=== PATIENT | male | born 1970 | race Caucasian/White ===

== ENCOUNTER 2025-01-27 08:35 | Outpatient (REF) | payer MEDICAID, SELFPAY ==
--- OUTSIDE RECORDS SUMMARY | 2025-01-22 09:00 | XMS_ITS | Encounter Summary ---
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) Amputation of right great toe (CMS/HCC) Santo Carmen MD [address] [place] [address] Phone: tel: fax: Jefferson Bender DPM [address] [place] [phone] Phone: tel: fax: Referral ID Status Reason Start Date Expiration Date Visits Requested Visits Authorized [id number] Authorized Specialty Services Required 01/26/2025 01/26/2026 6 6 * Consultation (Routine) - Authorized Specialty Diagnoses / Procedures Referred By Contac t Referred To Contact Vascular Surgery Diagnoses Amputation of right great toe (CMS/HCC) Peripheral vascular disease (CMS/HCC) Santo Carmen MD [address] [place] [address] Phone: tel: fax: [address] Phone: tel: fax: Referral ID Status Reason Start Date Expiration Date Visits Requested Visits Authorized [id number] Authorized Specialty Services Required 01/26/2025 01/26/2026 6 6 Reason for Visit * Reason Comments Diabetes Encounter Details Date Type Department Care Team (Late st Contact Info) Description 01/22/2025 9:00 AM EDT Office Visit [facility] [address], [place] [phone] Santo Carmen MD [address] [place] [address] 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 (CMS/HCC) (Primary Dx); Polyneuropathy associated with underlying disease (CMS/HCC); Amputation of right great toe (CMS/HCC); Hypercholesterolemia; Peripheral vascular disease (CMS/HCC) Social History Tobacco Use Types Packs/Day Years Used Date Smoking Tobacco: Never Assessed Sex and Gender Information Value Date Recorded Sex Assigned at Male 12/15/2024 3:14 PM EDT Legal Sex Male 12:29 PM EDT Gender Identity Male 12/15/2024 3:14 PM EDT Sexual Orientation Straight 01/22/2025 8: 41 AM EDT documented as of this encounter Last Filed Vital Signs Vital Sign Reading Time Taken Comments Blood Pressure 106/68 01/22/2025 9:16 AM EDT Pulse 97 01/22/2025 9:16 AM EDT Temperature 36.8 C (98.2 F) 01/22/2025 9:16 AM EDT Respiratory Rate 18 01/22/2025 9:16 AM EDT Oxygen Saturation 98% 01/22/2025 9:16 AM EDT Inhaled Oxygen Concentration - - Weight 73.9 kg (163 lb) 01/22/2025 9:16 AM EDT Height - - Body Mass Index - - documented in this encounter Progress Notes * Santo Carmen MD - 01/22/2025 9:00 AM EDT Subjective History was provided by the patient. Mkie Truong is a 54 y.o. male NEW PATIENT who presents to establish care and request medication refills. Moved from [place] 1.5 months ago. Underlying Type 1 DM (diagnosed at age 43), PVD, peripheral neuropathy, and hypercholesterolemia. He is s/p right great toe amputation and left 5th metatar margareth bone removal due to osteomyelitis. Had a prolonged hospitalization for 4 months at that time. Now living with his adult son in this area. He has been out of his medications for 2 weeks. Has hyperglycemia, but BS is not terribly out of control. States he feels more peaceful since he moved to this area. Denies F/C/N/V/D, abdominal pain, SOTO, dizziness, or lightheadedness. Previous medications: Gabapentin 300mg at bedtime Lisinopril 2.5mg daily Atorvastatin 20mg at bedtime Plavix 75mg daily Lantus 30 units bid Lispro 15 units before meals Data (10/06/2024): H/H 11.9/36.9 PLT 308 BUN/Cr 33/0.58 Objective Vitals: 01/22/25 0916 BP: 106/68 BP Location: Right arm Patient Position: Sitting BP Cuff Size: Adult Pulse: 97 Resp: 18 Temp: 98.2 ??F (36.8 ??C) TempSrc: Temporal SpO2: 98% Weight: 163 lb (73.9 kg) Physical Exam Vitals reviewed. Constitutional: General: He is not in acute distress. Appearance: Normal appearance. He is not ill-appearing, toxic-appearing or diaphoretic. HENT: Head: Normocephalic and atraumatic. Right Ear: External ear normal. Left Ear: External ear normal. Nose: Nose normal. Mouth/Throat: Mouth: Mucous membranes are moist. Pharynx: Oropharynx is clear. No oropharyngeal exudate or posterior oropharyngeal erythema. Eyes: Extraocular Movements: Extraocular movements intact. Conjunctiva/sclera: Conjunctivae normal. Pupils: Pupils are equal, round, and reactive to light. Cardiovascular: Rate and Rhythm: Normal rate and regular rhythm. Heart sounds: Normal heart sounds. Pulmonary: Effort: Pulmonary effort is normal. No respiratory distress. Breath sounds: Normal breath sounds. No wheezing or rales. Chest: Chest wall: No tenderness. Abdominal: General: Abdomen is flat. Palpations: Abdomen is soft. Musculoskeletal: General: Normal range of motion. Cervical back: Neck supple. Comments: S/p right great toe amputation with well-healed scar; well-healed scar at left 5th metatarsal area (5th toe is intact); bilateral plantar calluses (3cm x 3cm each) Lymphadenopathy: Cervical: No cervical adenopathy. Skin: General: Skin is warm and dry. Neurological: General: No focal deficit present. Mental Status: He is alert and oriented to person, place, and time. Psychiatric: Mood and Affect: Mood normal. Behavior: Behavior normal. Office Visit on 01/22/2025 Component Date Value Ref Range Status Hemoglobin A1C 01/22/2025 9.7 (A) 4.0 - 5.7 % Final Glucose Blood, POC 01/22/2025 235 (A) 60 - 200 mg/dL Final Mike was seen today for diabetes. Diagnoses and all orders for this visit: 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 ([facility]) (Primary) - POCT A1c - POCT glucose manually resulted - insulin glargine (Lantus SoloStar) 100 UNIT/ML pen; Inject 30 Units under the skin at bedtime. - insulin lispro (HumaLOG KWIKPEN) 100 UNIT/ML injection; Inject 10 Units under the skin with breakfast, with lunch, and with evening meal. - lisinopril (Zestril) 2.5 MG tablet; Take 1 tablet (2.5 mg) by mouth Once per day. - pen needle 32G x 4 mm misc; Use as instructed - Alcohol Swabs (Alcohol Pads) 70 % pads; Use as directed on skin; type 1 DM - Blood Glucose Monitoring Suppl (FreeStyle [place] Lite) w/Device kit; Use to test blood sugar biddx dm - glucose blood (FREESTYLE LITE) test strip; Use tid-qid. Dx type 1 diabetes - FreeStyle lancets; 1 each by Other route if needed in the morning, at noon, in the evening, and at bedtime (to check BS). dx type 1 diabetes - Lipid Panel, Standard; Future - CBC auto differential; Future - Comprehensive Metabolic Panel; Future - Albumin, Random Urine W/Creatinine; Future - Referral to Podiatry; Future Polyneuropathy associated with underlying disease ([facility]) - gabapentin (Neurontin) 300 MG capsule; Take 1 capsule (300 mg) by mouth at bedtime. Amputation of right great toe ([facility]) - Referral to Vascular Surgery; Future - Referral to Podiatry; Future Hypercholesterolemia - atorvastatin (Lipitor) 20 MG tablet; Take 1 tablet (20 mg) by mouth Once per day. - Lipid Panel, Standard; Future Peripheral vascular disease ([facility]) - clopidogrel (Plavix) 75 MG tablet; Take 1 tablet (75 mg) by mouth Once per day. - Comprehensive Metabolic Panel; Future - Referral to Vascular Surgery; Future New patient presents to establish care and request medication refills Underlying Type 1 DM (diagnosed at age 43) Has been out of his medications for 2 weeks POC BS 235 & Hgb A1c 9.7 today Reports decreased stress since moving to [place] Denies any acute concerns Will Rx Glucometer and supplies Will refill insulin at lower doses given current BS despite no meds for 2 weeks Rx Lantus SoloStar 30 units at bedtime (previously at 30 units bid) Rx Humalog Kwikpen 10 units before meals (previously at 15 units before meals) Advised to monitor BS 4x/day + PRN Refilled Gabapenin, Lisinopril, Atorvastatin, and Plavix Check CMP, FLP, CBC, and MA/Cr ratio New PCP appointment scheduled for 02/12/2025 Will submit a referral to [facility] Will also refer to Vascular Surgery and Podiatry Indications for UC/ER use reviewed Advised to contact the clinic if any worsening concerns New PCP appointment scheduled for 03/31/2025 (changed to 02/12/2025) Needs EYE referral Needs Vascular Surgery referral Needs Podiatry referral ([place]) documented in this encounter Plan of Treatment Upcoming Encounters Date Type Department Care Team (Late st Contact Info) Description 02/12/2025 9:45 AM EDT Office Visit [facility] [address] [place] [phone] Lesly Jaeger MD [address] [place] [address] Scheduled Orders Name Type Priority Associated Diagnoses Orde r Schedule Lipid Panel, Standard Lab Routine 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 (CMS/HCC) Hypercholesterolemia Expected: 01/22/2025 (Approximate), Expires: 01/22/2026 CBC auto differential Lab Routine 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 (CMS/HCC) Expected: 01/22/2025 (Approximate), Expires: 01/22/2026 Comprehensive Metabolic Panel Lab Routine 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 (CMS/HCC) Peripheral vascular disease (CMS/HCC) Expected: 01/22/2025 (Approximate), Expires: 01/22/2026 Albumin, Random Urine W/Creatinine Lab Routine 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 ([facility]/HCC) Expected: 01/22/2025 (Approximate), Expires: 01/22/2026 Scheduled Referrals Name Type Priority Associated Diagnoses Orde r Schedule Referral to Vascular Surgery Outpatient Referral Routine Amputation of right great toe ([facility]) Peripheral vascular disease ([facility]/HCC) Expected: 01/24/2025 (Approximate), Expires: 01/24/2026 Referral to Podiatry Outpatient Referral Routine 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 ([facility]/HCC) Amputation of right great toe ([facility]) Expected: 01/24/2025 (Approximate), Expires: 01/24/2026 documented as of this encounter Procedures Procedure Name Priority Date/Time Associated Diagnosis Comments POCT GLYCATED HEMOGLOBIN, TOTAL Routine 01/22/2025 9:18 AM EDT 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 ([facility]/HCC) POCT GLUCOSE Routine 01/22/2025 9:18 AM EDT 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 ([facility]) documented in this encounter Results * (ABNORMAL) POCT glucose manually resulted (01/22/2025 9:18 AM EDT) Glucose Blood, POC 235(A) 60 - 200 mg/dL Blood Capillary blood specimen / Unknown 01/22/2025 9:18 AM EDT us Santo Carmen MD POINT OF CARE TEST ENTER/EDIT OR DERABLES Final Result * (ABNORMAL) POCT A1c (01/22/2025 9:18 AM EDT) Hemoglobin A1C 9.7(A) 4.0 - 5.7 % Blood 01/22/2025 9:18 AM EDT us Santo Carmen MD POINT OF CARE TEST ENTER/EDIT OR DERABLES Final Result documented in this encounter Visit Diagnoses Diagnosis 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
--- OUTSIDE RECORDS SUMMARY | 2025-01-27 09:04 | XMS_ITS | Clinical Summary ---
Author Organization [employer] Address [address] [facility] [address] [place] [address] Care Team Providers Care Lightning Rod Erector Name Role Phone Unavailable Primary Care Provider Unavailabl e Allergies Active Allergy Reactions Criticality Noted Date Comments Aspirin Rash Low 01/22/2025 Medications insulin glargine (Lantus SoloStar) 100 UNIT/ML penIndications:Ty pe 1 diabetes mellitus with other circulatory complication (HCC) Inject 30 Units under the skin at bedtime. 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 30 tablet 2 5 04/22/20 25 Active pen needle 32G x 4 mm miscIndications:T ype 1 diabetes mellitus with other circulatory complication (HCC) Use as instructed 100 each 2 5 Active atorvastatin (Lipitor) 20 MG tabletIndications :Hypercholesterol emia Take 1 tablet (20 mg) by mouth Once per day. 30 tablet 2 5 04/22/20 25 Active clopidogrel (Plavix) 75 MG tabletIndications :Peripheral vascular disease (CMS/HCC) Take 1 tablet (75 mg) by mouth Once per day. 30 tablet 2 5 04/22/20 25 Active gabapentin (Neurontin) 300 MG capsuleIndication s:Polyneuropathy associated with underlying disease (CMS/HCC) Take 1 capsule (300 mg) by mouth at bedtime. 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 dx type 1 diabetes 100 each 01/23/20 Active Encounters Date Type Department Care Team Description 01/24/2025 Telephone [facility] [address] [place] [phone] Santo Carmen MD EYE EXAM REQUEST (New patient with Type 1 DM being referred for routine eye exam.) 01/22/2025 9:00 AM EDT Office Visit [facility] [address] [place] [phone] Santo Carmen MD 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 (CMS/HCC) (Primary Dx); Polyneuropathy associated with underlying disease (CMS/HCC); Amputation of right great toe (CMS/HCC); Hypercholesterolemia; Peripheral vascular disease (CMS/HCC) 01/22/2025 Telephone [facility] [address] [place] [phone] Santo Carmen MD 01/22/2025 Travel 01/21/2025 Telephone [facility] [address] [place] [phone] Serg Lares MD Call Back Request 01/05/[address] [phone] Serg Lares MD CHW - New Patient Assistance 12/15/2024 Telephone [facility] [address] [place] [address] Delmi Hester MD from Last 3 Months Social History Tobacco Use Types Packs/Day Years Used Date Smoking Tobacco: Never Assessed Sex and Gender Information Value Date Recorded Sex Assigned at Male 12/15/2024 3:14 PM EDT Legal Sex Male 12:29 PM EDT Gender Identity Male 12/15/2024 3:14 PM EDT Sexual Orientation Straight 01/22/2025 8: 41 AM EDT Last Filed Vital Signs Vital Sign Reading [...] - - Body Mass Index - - Plan of Treatment Upcoming Encounters Date Type Department Care Team (Late st Contact Info) Description 02/12/2025 9:45 AM EDT Office Visit [facility] [address] [place] [address] Lesly Jaeger MD [address] [place] [address] Health Maintenance Due Date Last Done Comments CT Colonography 1972 Colonoscopy 1972 Colorectal Cancer Screening 1972 Depression Screening 1972 FIT DNA/Cologuard 1972 FIT 1972 FOBT 1972 HIV Screening 1972 Lipid Panel 1972 SDOH Screening 1972 Sigmoidoscopy 1972 Disability Screening 1972 Diabetes: Foot Exam 1982 Eye Exam 1982 Alcohol/Substance Use Screening 1984 Tobacco Screening 1984 Family Planning (PISQ) 1987 Hepatitis C Screening 1990 DTaP/Tdap/Td Vaccines (1 - Tdap) 1991 Diabetes: Urine Protein Screening 1991 Hepatitis B Vaccines (1 of 3 - 19+ 3-dose series) 1991 Pneumococcal Vaccine: 50+ Ye ars (1 of 2 - PCV) 1991 Zoster Vaccines (1 of 2) 2022 COVID-19 Vaccine (1 - 2023-2 5 season) 2024 Influenza Vaccine (#1) 2024 Diabetes: Hemoglobin A1C 04/23/2025 01/22/2025 RSV Patients and Pa tients Aged 60 years or older (1 - 1-dose 75+ series) 2047 HIB Vaccines Aged Out No longer eligi ble based on patient's age to complete this topic HPV Vaccines Aged Out No longer eligi ble based on patient's age to complete this topic Hepatitis A Vaccines Aged Out No long er eligible based on patient's age to complete this topic IPV Vaccines Aged Out No longer eligi ble based on patient's age to complete this topic Meningococcal B Vaccine Aged Out No l onger eligible based on patient's age to complete this topic Meningococcal Vaccine Aged Out No ulises carlos manuel eligible based on patient's age to complete this topic RSV under 20 months Aged Out No longe r eligible based on patient's age to complete this topic Rotavirus Vaccines Aged Out No longer eligible based on patient's age to complete this topic Procedures Procedure Name Priority Date/Time Associated Diagnosis Comments POCT GLUCOSE Routine 01/22/2025 9:18 AM EDT 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 (CMS/HCC) POCT GLYCATED HEMOGLOBIN, TOTAL Routine 01/22/2025 9:18 AM EDT 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 (CMS/HCC) from Last 3 Months Results * (ABNORMAL) POCT A1c (01/22/2025 9:18 AM EDT) Hemoglobin A1C 9.7(A) 4.0 - 5.7 % Blood 01/22/2025 9:18 AM EDT Snato Carmen MD POINT OF CARE TEST ENTER/EDIT OR DERABLES Final Result * (ABNORMAL) POCT glucose manually resulted (01/22/2025 9:18 AM EDT) Glucose Blood, POC 235(A) 60 - 200 mg/dL Blood Capillary blood specimen / Unknown 01/22/2025 9:18 AM EDT Santo Carmen MD POINT OF CARE TEST ENTER/EDIT OR DERABLES Final Result from Last 3 Months [address] [place] [phone] [facility] C[facility]
--- OUTSIDE RECORDS SUMMARY | 2025-01-27 09:04 | XMS_ITS | Encounter Summary ---
Author Organization [employer] [facility] Address [address] [place] [address] [place] [address] Care Team Providers Care Document Manager Name Role Phone Unavailable Primary Care Provider Unavailabl e Encounter Details Date Type Department Care Team (Latest Contact Info) Description 01/22/2025 Travel Social History Tobacco Use Types Packs/Day Years Used Date Smoking Tobacco: Never Assessed Sex and Gender Information Value Date Recorded Sex Assigned at Male 12/15/2024 3:14 PM EDT Legal Sex Male 12:29 PM EDT Gender Identity Male 12/15/2024 3:14 PM EDT Sexual Orientation Straight 01/22/2025 8: 41 AM EDT documented as of this encounter Plan of Treatment Upcoming Encounters Date Type Department Care Team (Late st Contact Info) Description 02/12/2025 9:45 AM EDT Office Visit [facility] [address] [place] [address] Lesly Jaeger MD [address] [place] [address] documented as of this encounter Visit Diagnoses Not on filedocumented in this encounter
--- OUTSIDE RECORDS SUMMARY | 2025-01-27 09:04 | XMS_ITS | Encounter Summary ---
Author Organization [employer] [facility] Address [address] [facility] [address] [place] [address] Care Team Providers Care Die Attaching Machine Tender Name Role Phone Unavailable Primary Care Provider Unavailabl e Reason for Visit * Reason Onset Date Comments EYE EXAM REQUEST 01/24/2025 New patient wit h Type 1 DM being referred for routine eye exam. Encounter Details Date Type Department Care Team (Late st Contact Info) Description 01/24/2025 Telephone [facility] [address] [place] [address] [phone] Santo Carmen MD [address] [place] [address] [phone] EYE EXAM REQUEST (New patient with Type 1 DM being referred for routine eye exam.) Social History Tobacco Use Types Packs/Day Years Used Date Smoking Tobacco: Never Assessed Sex and Gender Information Value Date Recorded Sex Assigned at Male 12/15/2024 3:14 PM EDT Legal Sex Male 12:29 PM EDT Gender Identity Male 12/15/2024 3:14 PM EDT Sexual Orientation Straight 01/22/2025 8: 41 AM EDT documented as of this encounter Miscellaneous Notes * Telephone Encounter - Santo Carmen MD - 01/24/2025 9:13 AM EDT New patient with Type 1 DM being referred for routine eye exam. documented in this encounter Plan of Treatment Upcoming Encounters Date Type Department Care Team (Late st Contact Info) Description 02/12/2025 9:45 AM EDT Office Visit [facility] [address] [place] [phone] Lesly Jaeger MD [address] [place] [phone] documented as of this encounter Visit Diagnoses Not on filedocumented in this encounter
--- OUTSIDE RECORDS SUMMARY | 2025-01-27 09:04 | XMS_ITS | Encounter Summary ---
Author Organization [employer] Address [address] [facility] [address] [place] [address] Care Team Providers Care Office Rental Clerk Name Role Phone Unavailable Primary Care Provider Unavailabl e Encounter Details Date Type Department Care Team (Late st Contact Info) Description 01/22/2025 Telephone [facility] [address] [place] [address] [phone] Santo Carmen MD [address] [place], [place] [phone] Social History Tobacco Use Types Packs/Day Years Used Date Smoking Tobacco: Never Assessed Sex and Gender Information Value Date Recorded Sex Assigned at Male 12/15/2024 3:14 PM EDT Legal Sex Male 12:29 PM EDT Gender Identity Male 12/15/2024 3:14 PM EDT Sexual Orientation Straight 01/22/2025 8: 41 AM EDT documented as of this encounter Miscellaneous Notes * Telephone Encounter - Jordyn Martin MA - 01/22/2025 10:48 AM EDT Spoke to patient and found a sooner New Pt appointment with Dr. Martinez on Feb 12 @ 9:45 am. Patient agreed. Canceled new patient appointment with Dr. Dumont on 03/31/2025. documented in this encounter Plan of Treatment Upcoming Encounters Date Type Department Care Team (Late st Contact Info) Description 02/12/2025 9:45 AM EDT Office Visit [facility] [address] [place], [place] [phone] Lesly Jaeger MD [address] [place], [place] [phone] documented as of this encounter Visit Diagnoses Not on filedocumented in this encounter
[2025-01-27 12:07] LABS: MANUAL DIFF FLAG NO
[2025-01-27 12:14] LABS: Hematocrit 38.2 % (42.0-52.0); Hemoglobin 12.2 g/dl (14.0-18.0); Imm Gran Abs Auto 0.04 X10*3/uL (0.00-0.03); Imm Gran Pct Auto 0.3 % (0.0-0.4); Lymphocytes Absolute Auto 2.1 X10*3/uL (1.2-4.9); Mean Corpuscular HGB Conc 31.9 g/dl (31.0-36.0); Mean Corpuscular Hemoglobin 27.3 pg (27.0-33.0); Mean Corpuscular Volume 85.5 fL (80.0-98.0); NRBC Abs Auto 0.000 X10*3/uL (0.0-0.012); NRBC Pct Auto 0.0 /100WBC (0.0-0.2); Platelet Count 331 X10*3/uL (160-400); Red Blood Count 4.47 X10*6/uL (4.60-5.80); White Blood Count 11.7 X10*3/uL (4.8-10.8)
[2025-01-27 12:19] LABS: Microalbum/Creatinine Ratio Ur 8.1 ug/mg cr (<30)
[2025-01-27 12:33] LABS: Alanine Aminotransferase 12 U/L (0-40); Albumin Level 4.6 g/dL (3.5-5.0); Alkaline Phosphatase 94 U/L (39-117); Anion Gap 13 (12-20); Aspartate Amino Transferase 15 U/L (5-37); Blood Urea Nitrogen 12 mg/dL (9-16); Calcium 9.7 mg/dL (8.4-10.2); Carbon Dioxide 28 mmol/L (22-29); Chloride 105 mmol/L (96-108); Cholesterol 125 mg/dL (<200); Estimated Glomerular Filt Rate > 60; HDL Cholesterol 30 mg/dL (>40); Potassium 4.0 mmol/L (3.3-5.1); Sodium 142 mmol/L (135-145); Total Protein 7.9 g/dL (6.5-8.0); Triglycerides 111 mg/dL (<150)
== END 2025-01-27 08:36 | disposition home or self-care (01) ==
LOC: HO.HHCL 08:35
PROVIDERS: Visit Provider Family Medicine
DX: E10.59 Type 1 diabetes mellitus with other circulatory complications (principal); I73.9 Peripheral vascular disease, unspecified; E78.00 Pure hypercholesterolemia, unspecified
CPT/HCPCS: 36415; 80053; 80061; 82043; 82570; 85025

== ENCOUNTER 2025-03-04 12:51 | Outpatient (REF) | payer MEDICAID, SELFPAY ==
--- NOTE | ~2025-03-04 | US_ITS ---
EXAMINATION: MM DIAGNOSTIC DIGITAL BREAST TOMOSYNTHESIS, BILATERAL Right limited ultrasound. CLINICAL INFORMATION: Right breast palpable lump upper slightly outer breast anterior depth slightly retroareolar region. COMPARISON: Mammography: Comparison is made with relevant prior exams. TECHNIQUE: Digital breast mammography with tomosynthesis is performed in both the craniocaudal and mediolateral oblique views along with computer-aided detection (CAD). FINDINGS: Right: There is moderate right retroareolar gynecomastia which correlates with the patient's palpable BB marker. No suspicious calcifications or other abnormal findings. Targeted color Doppler ultrasound scanning in the right retroareolar region demonstrates moderate retroareolar flame-shaped gynecomastia. Left: Suspicious masses calcifications or other abnormal findings. Results are provided to the patient at time of visit by the technologist. US/US Breast RT Limited Mamm Only IMPRESSION: Left: Negative. Right: Moderate retroareolar flame-shaped right gynecomastia correlating with the patient's palpable lump. Benign. Recommend clinical evaluation and follow-up. ASSESSMENT: BI-RADS Category 2: Benign RECOMMENDATION: Recommend clinical evaluation and follow-up. Electronically signed by: Rose Marie Bowen DO 03/04/2025 02:21 PM EST
--- OUTSIDE RECORDS SUMMARY | 2025-03-04 15:36 | XMS_ITS | Clinical Summary ---
Demographics Address [address] [place] [address] [address] [place] [address] Home Phone Work Phone Mobile Phone Preferred Language es Marital Status Unknown Presybeterian Affiliation Unknown Race Other Race Ethnic Group or Author Organization [address] [facility] Address [address] [place] [address] Phone Care Team Providers Care Patient Registration Representative Name Role Phone Santo Carmen MD Primary Care Provider [phone] Social History Tobacco Use Types Packs/Day Years Used Date Smoking Tobacco: Never Assessed Sex and Gender Information Value Date Recorded Sex Assigned at Not on file Legal Sex Male 9:19 AM EDT Gender Identity Not on file Sexual Orientation Not on file Plan of Treatment Upcoming Encounters Date Type Department Care Team ([facility] Contact Info) Description 03/16/2025 10:15 AM EST Consult Orthopedic Surgery - [place] [id number] [phone] David Mckay, DPMira [address] [phone] Health Maintenance Due Date Last Done Comments Colorectal Cancer Screening: Colonoscopy 1972 Diabetes: Annual GFR (Glomer ular Filtration Rate) 1972 Diabetes: Annual Foot Exam 1982 Diabetes: Annual Retina Eye Exam 1982 DTaP,Tdap,and Td Vaccines (1 - Tdap) 1991 Hepatitis B Vaccines (1 of 3 - 19+ 3-dose series) 1991 Pneumococcal Vaccine: 50+ Ye ars (1 of 2 - PCV) 1991 Zoster Vaccines (1 of 2) 2022 Depression Screening 04/30/2024 COVID-19 Vaccine (1 - 2023-2 5 season) 2024 Influenza Vaccine (#1) 2024 Cholesterol Screening (Lipid Panel) 01/28/2025 Diabetes: Annual Urine Albumin-Creatinine Ratio (uACR) 01/28/2025 Diabetes: Blood Sugar Contro l Test (HGBA1C) 01/28/2025 HIV Screening 01/28/2025 Hepatitis C Screening 01/28/2025 Social Influencers of Health Screening 01/28/2025 RSV Immunization Adult Patie nts (1 - 1-dose 75+ series) 2047 HIB [...] on patient's age to complete this topic MMR Vaccines Aged Out No longer eligi ble based on patient's age to complete this topic Meningococcal ACWY Vaccine Aged Out N o longer eligible based on patient's age to complete this topic Meningococcal B Vaccine Aged Out No l onger eligible based on patient's age to complete this topic RSV Immunization Patients Un aysha 20 months Aged Out No longer eligible b ased on patient's age to complete this topic Varicella Vaccines Aged Out No longer eligible based on patient's age to complete this topic Insurance MEDICAID - [place] Care Teams Patient Registration Representative Relationship Specialty Start Date End Date Santo Carmen MD [address] [place] [address] PCP - General Family Medicine 01/28/25
--- OUTSIDE RECORDS SUMMARY | 2025-03-04 15:36 | XMS_ITS | Encounter Summary ---
Author Organization [employer] Address [address] [place] [address] [address] [place] [address] Care Team Providers Care Clinical Laboratory Assistant Name Role Phone Lesly Jaeger MD Primary Care Pro vider Encounter Details Date Type Department Care Team (Late Contact Info) Description 01/28/2025 Results Follow-Up [facility] [address] [place] [phone] Santo Carmen MD [address] [place] [phone] POCT A1c, POCT glucose manually resulted, Lipid Panel, Standard, Additional followed-up results: 3 Social History Tobacco Use Types Packs/Day Years [...] Encounters Date Type Department Care Team (Late Contact Info) Description 2025 2:00 PM EST Clinical Support [facility] [address] [place] [phone] 04/09/2025 1:15 PM EST Office Visit [facility] [address] [place] [address] [phone] Lesly Jaeger MD [address] [place] [phone] 06/09/2025 1:30 PM EST Office Visit [facility] [address] [place] [phone] Robert Renée, OD [address] [place] [address] documented as of this encounter Visit Diagnoses Not on filedocumented in this encounter Care Teams Clinical Laboratory Assistant Relationship Specialty Start Date End Date Lesly Jaeger MD [address] [place] [phone] PCP - General Internal Medicine 02/12/25 documented as of this encounter
--- OUTSIDE RECORDS SUMMARY | 2025-03-04 15:36 | XMS_ITS | Clinical Summary ---
Author Organization [employer] Address [address] [place] [address] [address] [place] [address] Care Team Providers Care Machine Clothing Man Name Role Phone Lesly Jaeger MD Primary Care Pro vider Allergies Active Allergy Reactions Criticality Noted Date Comments Aspirin Rash Low 01/22/2025 Medications * This document contains information received from the source organization and may not represent a complete record from that organization. 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 30 tablet 2 01/23/20 25 025 Active clopidogrel (Plavix) 75 MG tabletIndicatio ns:Peripheral vascular disease (CMS/HCC) Take 1 tablet (75 mg) by mouth Once per day. 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 dx type 1 diabetes 100 each 01/23/20 Active Melatonin 3 MG capsule Take 3 mg by mouth if needed at bedtime (insomnia). 30 capsule 2 02/13/20 Active gabapentin (Neurontin) 400 MG capsule Take 1 capsule (400 mg) by mouth at bedtime. 90 capsule 02/13/20 Active Continuous Glucose [employer] (FreeStyle Desi 3 [place]) device 1 Device 4 times daily. 1 each 02/13/20 Active Continuous Glucose Sensor (FreeStyle Desi 3 Plus Sensor) misc 1 each every 15 days. Apply 1 every 15 days as directed for CGM 2 each 02/13/20 Active glucose blood (FreeStyle Precision Diego Test) test strip 4 times a day 100 each 02/13/20 Active glucose 4 g chewable tablet Chew 4 tablets (16 g) if needed for low blood sugar. 50 tablet 12 02/13/20 Active FT Earwax Removal 6.5 % otic solution PLACE 5 TO 10 DROPS INTO THE AFFECTED EAR(S) TWICE DAILY FOR 4 DAYS 30 mL 03/04/20 Active gabapentin (Neurontin) 300 MG capsuleIndicati ons:Polyneuropa thy associated with underlying disease (CMS/HCC) Take 1 capsule (300 mg) by mouth at bedtime. 30 capsule 2 01/23/20 25 025 Discontinued(O ther) carbamide peroxide (Debrox) 6.5 % otic solution Administer 5-10 drops into affected ear(s) 2 times daily for 4 days. 30 mL 02/13/20 25 025 Discontinued Active Problems Problem Noted Date Diagnosed Date Type 1 diabetes mellitus wit h diabetic peripheral angiopathy without gangrene 02/12/2025 Health care maintenance 02/12/2025 Peripheral vascular disease 02/12/2025 Diabetic neuropathy 02/12/2025 HLD (hyperlipidemia) 02/12/2025 Anxiety 02/12/2025 Primary insomnia 02/12/2025 History of allergy to aspirin 02/12/2025 Breast mass, right 02/12/2025 Anemia 02/12/2025 Excess ear wax 02/12/2025 Adjustment disorder with mixed anxiety and depre ssed mood 02/12/2025 Encounters * This document contains information received from the source organization and may not represent a complete record from that organization. Date Type Department Care Team Description 03/03/2025 Refill [facility] [address] [place] [phone] Lesly Jaeger MD 02/26/2025 Telephone [facility] [address] [place] [phone] Lesly Jaeger MD Appointment 02/13/2025 2:00 PM EDT Clinical Support [address] [phone] Ronda Arango, RN Type 1 diabetes mellitus with diabetic peripheral angiopathy without gangrene (HCC) 02/13/2025 Travel 02/12/2025 9:45 AM EDT Office Visit [facility] [address] [place] [phone] Lesly Jaeger MD Diabetic retinopathy screening (Primary Dx); 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); Annual physical exam; Colon cancer screening; Subareolar mass of right breast; Encounter for immunization; Type 1 diabetes mellitus with diabetic peripheral angiopathy without gangrene (HCC); Health care maintenance; Peripheral vascular disease ([facility]/HCC); Diabetic polyneuropathy associated with type 1 diabetes mellitus (HCC); Hyperlipidemia, unspecified hyperlipidemia type; Anxiety; Primary insomnia; History of allergy to aspirin; Anemia, unspecified type; Impacted cerumen of left ear 02/12/[address] [phone] Lesly Jaeger MD 02/12/2025 Orders Only [address] [address] Lesly Jaeger MD Subareolar mass of right breast (Primary Dx) 02/12/2025 [facility] [address] [place] [phone] Lesly Jaeger MD MAMMO/US BREAST ORDER 02/12/[address] [phone] Pily Guerin, RN Appointment Request 02/12/2025 Travel 02/11/[address] [address] Lesly Jaeger MD chart prep 02/05/2025 Patient Outreach [address] [phone] Lesly Jaeger MD Care Coordination (W outreach for SDOH housing search-referral completed ) 02/05/2025 Patient Outreach [address] [phone] Lesly Jaeger MD Pre-visit Planning (SDOH Screening positive and Tobacco screening negative) 01/30/2025 Population Health Risk Score [facility] Department [address] [place] [phone] Provider, Population Health Generic 01/28/2025 Results Follow-Up [facility] [address] [place] [address] [phone] Santo Carmen MD POCT A1c, POCT glucose manually resulted, Lipid Panel, Standard, Additional followed-up results: 3 01/24/2025 Telephone [facility] [address] [place] [address] [phone] Santo Carmen MD EYE EXAM REQUEST (New patient with Type 1 DM being referred for routine eye exam.) 01/22/2025 9:00 AM EDT Office Visit [facility] [address] [place] [phone] Santo Carmen MD 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 (CMS/HCC) (Primary Dx); Polyneuropathy associated with underlying disease (CMS/HCC); Amputation of right great toe (CMS/HCC); Hypercholesterolemia; Peripheral vascular disease (CMS/HCC) 01/22/2025 Telephone [facility] [address] [place] [phone] Santo Caremn MD 01/22/2025 Travel 01/21/2025 Telephone [facility] [address] [place] [phone] Serg Lares MD Call Back Request 01/05/[address] [phone] Serg Lares MD CH[facility] - New Patient Assistance 12/15/2024 Telephone [facility] INS ENROLLMENT [address] [place] [phone] Delmi Hester MD from Last 3 Months Immunizations Immunization Administration Dates Next Due Influenza, seasonal, injectable, preservative fr ee 02/12/2025 Pfizer Covid-19 Vaccine 12+ 02/12/2025 Pneumococcal Conjugate PCV 20 02/12/2025 Family History Medical History Relation Name Comments Diabetes Brother DM1 Son Relation Name Status Comments Brother Son Social History Tobacco Use Types Packs/Day Years Used Date Smoking Tobacco: Former Cigarettes Passive Smoke Exposure: Never Smokeless Tobacco: Never Comments:Started smoking at his 27 y of age until 42 y of age ,smoked for 15 y aprox 3 cig a day stopped 12 y ago, PQT a year 2.25 -no need lung ca screening Alcohol Use Standard Drinks/Week Comments Not Currently 0 (1 standard drink = 0.6 oz pur e alcohol) Depression Answer Date Recorded Patient Health Questionnaire-9 Score 13 02/12/2025 Patient Health Questionnaire-9 Score 13 02/12/2025 Last PHQ-9: Questionnaire Data Not on file 1 Housing Stability Answer Date Recorded What is your housing situation today? I do not have housing (Staying with others, in a hotel, in a mcc, living outside on the street, on a beach, in a car, or in a park 02/05/[address] you li ve. Do you have problems with any of the following? None of the above 02/05/2025 Food Insecurity Answer Date Recorded Within the past 12 months, y ou worried that your food would run out before you got money to buy more: Sometimes True 2024 Within the past 12 months,th e food you bought just didn't last and you didn't have enough money to get more: Sometimes True 02/05/2025 Transportation Answer Date Recorded In the past 12 months, has l ack of transportation kept you from medical appts, meetings, work or from getting things needed for daily living? I am not sure 02/12/2025 Utilities Answer Date Recorded In the past 12 months, has t he electric, gas, oil or water company threatened to shut off services in your home? No 02/05/2025 Depression Answer Date Recorded Patient Health Questionnaire-2 Score 4 02/12/2025 Internet Access Answer Date Recorded Internet Access Q1 Yes 02/05/2025 Internet Access Q2 Not on file 02/05/2025 Sex and Gender Information Value Date Recorded Sex Assigned at Male 12/15/2024 3:14 PM EDT Legal Sex Male 12:29 PM EDT Gender Identity Male 12/15/2024 3:14 PM EDT Sexual Orientation Straight 01/22/2025 8: 41 AM EDT Last Filed Vital Signs Vital Sign Reading Time Taken Comments Blood Pressure 108/62 02/12/2025 9:59 AM EDT Pulse 56 02/12/2025 9:59 AM EDT Temperature 36.2 C (97.2 F) 02/12/2025 9:59 AM EDT Respiratory Rate 20 02/12/2025 9:59 AM EDT Oxygen Saturation 98% 01/22/2025 9:16 AM EDT Inhaled Oxygen Concentration - - Weight 74.1 kg (163 lb 6.4 oz) 02/12/2025 9:59 A M EDT Height 177 cm (5' 9.69 ) 02/12/2025 9:59 AM EDT Body Mass Index 23.66 02/12/2025 9:59 AM EDT Plan of Treatment Upcoming Encounters Date Type Department Care Team (Late st Contact Info) Description 2025 2:00 PM EST Clinical Support [facility] [address] [place] [phone] 04/09/2025 1:15 PM EST Office Visit [facility] [address] [place] [phone] Lesly Jaeger MD [address] [place] [address] 06/09/2025 1:30 PM EST Office Visit [facility] [address] [place] [address] Renée Jones, OD [address] [place] [address] Health Maintenance Due Date Last Done Comments Anal Pap 1972 CT Colonography 1972 Colonoscopy 1972 Colorectal Cancer Screening 1972 FIT DNA/Cologuard 1972 FIT 1972 FOBT 1972 HIV Screening 1972 Sigmoidoscopy 1972 Diabetes: Foot Exam 1982 Eye Exam 1982 Family Planning (PISQ) 1987 Hepatitis C Screening 1990 DTaP/Tdap/Td Vaccines (1 - Tdap) 1991 Hepatitis A Vaccines (1 of 2 - Risk 2-dose series) 1991 Hepatitis B Vaccines (1 of 3 - 19+ 3-dose series) 1991 Zoster Vaccines (1 of 2) 2022 Diabetes: Hemoglobin A1C 04/23/2025 01/22/2025 Depression Monitoring 08/13/2025 02/12/2025 , 02/12/2025 Diabetes: Urine Protein Screening 01/27/2026 01/27/2025 Lipid Panel 01/27/2026 01/27/2025 Alcohol/Substance Use Screening 02/12/2026 02/12/2025 Disability Screening 02/12/2026 02/12/2025 SDOH Screening 02/12/2026 02/12/2025 Tobacco Screening 02/12/2026 02/12/2025 RSV Patients and Patients Aged 60 years or older (1 - 1-dose 75+ series) 2047 COVID-19 Vaccine Completed 02/12/2025 Influenza Vaccine Completed 02/12/2025 Pneumococcal Vaccine: 50+ Years Completed 02/12/2025 HIB Vaccines Aged Out No longer eligi [...] Procedure Name Priority Date/Time Associated Diagnosis Comments BI US BREAST LIMITED RIGHT STAT 03/04/2025 1:35 PM EST Subareolar mass of right breast BI MAMMOGRAM DIAGNOSTIC TOMOSYNTHESIS BILATERAL STAT 03/04/2025 1:00 PM EST Subareolar mass of right breast POCT GLUCOSE Routine 02/12/2025 10:35 AM EDT Diabetic retinopathy screening ALBUMIN, RANDOM URINE W/CREATININE Routine 01/27/2025 8:50 AM EDT 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 (CMS/HCC) COMPREHENSIVE METABOLIC PANEL Routine 01/27/2025 8:50 AM EDT 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 (CMS/HCC) Peripheral vascular disease (CMS/HCC) CBC WITH AUTO DIFFERENTIAL Routine 01/27/2025 8:50 AM EDT 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 (CMS/HCC) LIPID PANEL, STANDARD Routine 01/27/2025 8:50 AM EDT 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 (CMS/HCC) Hypercholesterolemia POCT GLUCOSE Routine 01/22/2025 9:18 AM EDT 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 (CMS/HCC) POCT GLYCATED HEMOGLOBIN, TOTAL Routine 01/22/2025 9:18 AM EDT 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 (CMS/HCC) from Last 3 Months Results * BI US Breast Limited Right (03/04/2025 1:35 PM EST) Anatomical Region Laterality Modality Breast Right Ultrasound 03/04/2025 1:35 PM EST Narrative 03/04/2025 2:24 PM EST [facility] [address] [place], [place] [address] Ultrasound Report Signed Patient: Mike Chavez MR#: [id number] : 1970 Acct:[id number] Age/Sex: 54 / M ADM Date: 03/04/25 Loc: HO.MAMMO Attending Dr: Lesly Milner MD Ordering Physician: Lesly Jaeger MD Date of Service: 03/04/25 Procedure(s): US Breast RT Limited Mamm Only Accession Number(s): [id number] cc: Lesly Jaeger MD Reason for Exam: 4 months in right breast behing nipple EXAMINATION: MM DIAGNOSTIC DIGITAL BREAST TOMOSYNTHESIS, BILATERAL Right limited ultrasound. CLINICAL INFORMATION: Right breast palpable lump upper slightly outer breast anterior depth slightly retroareolar region. COMPARISON: Mammography: Comparison is made with relevant prior exams. TECHNIQUE: Digital breast mammography with tomosynthesis is performed in both the craniocaudal and mediolateral oblique views along with computer-aided detection (CAD). FINDINGS: Right: There is moderate right retroareolar gynecomastia which correlates with the patient's palpable BB marker. No suspicious calcifications or other abnormal findings. Targeted color Doppler ultrasound scanning in the right retroareolar region demonstrates moderate retroareolar flame-shaped gynecomastia. Left: Suspicious masses calcifications or other abnormal findings. Results are provided to the patient at time of visit by the technologist. US/US Breast RT Limited Mamm Only IMPRESSION: Left: Negative. Right: Moderate retroareolar flame-shaped right gynecomastia correlating with the patient's palpable lump. Benign. Recommend clinical evaluation and follow-up. ASSESSMENT: BI-RADS Category 2: Benign RECOMMENDATION: Recommend clinical evaluation and follow-up. Electronically signed by: Rose Marie Bowen DO 03/04/2025 02:21 PM [facility] Dictated By: Rose Marie Bowen DO Signed By: <Electronically signed by Rose Marie Bowen DO in OV> 03/04/25 1421 DD/ 1335 TD/TT: 03/04/25 1348 Liver Trimmer: Procedure Note Donotuseinterpreter, Image - 03/04/2025 [facility] [address] [place], [place] [address] Ultrasound Report Signed Patient: Mike ChavezMR#: [id number] : 1970Acct:[id number] Age/Sex: 54 / MADM Date: 03/04/25 Loc: HO.MAMMO Attending Dr: Lesly Milner MD Ordering Physician: Lesly Jaeger MD Date of Service: 03/04/25 Procedure(s): US Breast RT Limited Mamm Only Accession Number(s): [id number] cc: Lesly Jaeger MD Reason for Exam: 4 months in right breast behing nipple EXAMINATION: MM DIAGNOSTIC DIGITAL BREAST TOMOSYNTHESIS, BILATERAL Right limited ultrasound. CLINICAL INFORMATION: Right breast palpable lump upper slightly outer breast anterior depth slightly retroareolar region. COMPARISON: Mammography: Comparison is made with relevant prior exams. TECHNIQUE: Digital breast mammography with tomosynthesis is performed in both the craniocaudal and mediolateral oblique views along with computer-aided detection (CAD). FINDINGS: Right: There is moderate right retroareolar gynecomastia which correlates with the patient's palpable BB marker. No suspicious calcifications or other abnormal findings. Targeted color Doppler ultrasound scanning in the right retroareolar region demonstrates moderate retroareolar flame-shaped gynecomastia. Left: Suspicious masses calcifications or other abnormal findings. Results are provided to the patient at time of visit by the technologist. US/US Breast RT Limited Mamm Only IMPRESSION: Left: Negative. Right: Moderate retroareolar flame-shaped right gynecomastia correlating with the patient's palpable lump. Benign. Recommend clinical evaluation and follow-up. ASSESSMENT: BI-RADS Category 2: Benign RECOMMENDATION: Recommend clinical evaluation and follow-up. Electronically signed by: Rose Marie Bowen DO 03/04/2025 02:21 PM EST RP Dictated By: Rose Marie Bowen DO Signed By: <Electronically signed by Rose Marie Bowen DO in OV> 03/04/25 1421 DD/ 1335 TD/TT: 03/04/25 1348 Liver Trimmer: us Lesly Milner MD IMG US PROCEDURES Final Result * BI Mammogram Diagnostic Tomosynthesis Bilateral (03/04/2025 1:00 PM EST) Anatomical Region Laterality Modality Breast Bilateral Mammography 03/04/2025 1:00 PM EST Narrative 03/04/2025 2:24 PM EST [facility] [address] [place] [address] Mammography Report Signed Patient: Mike Chavez MR#: [id number] : 1970 Acct:[id number] Age/Sex: 54 / M ADM Date: 03/04/25 Loc: HO.MAMMO Attending Dr: Lesly Milner MD Ordering Physician: Lesly Jaeger MD Re sults: 2Benign Date of Service: 03/04/25 Follow Up: 1 Year From Orig inal Mammogram Procedure(s): MM tomosynthesis diagnostic BI Accession Number(s): [id number] cc: Lesly Jaeger MD Reason For Exam: 4 months in right breast behing nipple EXAMINATION: MM DIAGNOSTIC DIGITAL BREAST TOMOSYNTHESIS, BILATERAL Right limited ultrasound. CLINICAL INFORMATION: Right breast palpable lump upper slightly outer breast anterior depth slightly retroareolar region. COMPARISON: Mammography: Comparison is made with relevant prior exams. TECHNIQUE: Digital breast mammography with tomosynthesis is performed in both the craniocaudal and mediolateral oblique views along with computer-aided detection (CAD). FINDINGS: Right: There is moderate right retroareolar gynecomastia which correlates with the patient's palpable BB marker. No suspicious calcifications or other abnormal findings. Targeted color Doppler ultrasound scanning in the right retroareolar region demonstrates moderate retroareolar flame-shaped gynecomastia. Left: Suspicious masses calcifications or other abnormal findings. Results are provided to the patient at time of visit by the technologist. MM/MM tomosynthesis diagnostic BI IMPRESSION: Left: Negative. Right: Moderate retroareolar flame-shaped right gynecomastia correlating with the patient's palpable lump. Benign. Recommend clinical evaluation and follow-up. ASSESSMENT: BI-RADS Category 2: Benign RECOMMENDATION: Recommend clinical evaluation and follow-up. Electronically signed by: Rose Marie Bowen DO 03/04/2025 02:21 PM [facility] Workstation: [employer] Dictated By: Rose Marie Bowen DO Signed By: <Electronically signed by Rose Marie Bowen DO in OV> 03/04/25 1421 DD/ 1300 TD/TT: 03/04/25 1320 Liver Trimmer: Procedure Note Donotuseinterpreter, Image - 03/04/2025 [facility] [address] [place] [address] Mammography Report Signed Patient: Monse Chavez#: M [id number] : 1970Acct:[id number] Age/Sex: 54 / MADM Date: 03/04/25 Loc: HO.MAMMO Attending Dr: Lesly Milner MD Ordering Physician: Lesly Jaeger sults: 2Benign Date of Service: 03/04/25Follow Up: 1 Year From Orig inal Mammogram Procedure(s): MM tomosynthesis diagnostic BI Accession Number(s): [id number] cc: Lesly Jaeger MD Reason For Exam: 4 months in right breast behing nipple EXAMINATION: MM DIAGNOSTIC DIGITAL BREAST TOMOSYNTHESIS, BILATERAL Right limited ultrasound. CLINICAL INFORMATION: Right breast palpable lump upper slightly outer breast anterior depth slightly retroareolar region. COMPARISON: Mammography: Comparison is made with relevant prior exams. TECHNIQUE: Digital breast mammography with tomosynthesis is performed in both the craniocaudal and mediolateral oblique views along with computer-aided detection (CAD). FINDINGS: Right: There is moderate right retroareolar gynecomastia which correlates with the patient's palpable BB marker. No suspicious calcifications or other abnormal findings. Targeted color Doppler ultrasound scanning in the right retroareolar region demonstrates moderate retroareolar flame-shaped gynecomastia. Left: Suspicious masses calcifications or other abnormal findings. Results are provided to the patient at time of visit by the technologist. MM/MM tomosynthesis diagnostic BI IMPRESSION: Left: Negative. Right: Moderate retroareolar flame-shaped right gynecomastia correlating with the patient's palpable lump. Benign. Recommend clinical evaluation and follow-up. ASSESSMENT: BI-RADS Category 2: Benign RECOMMENDATION: Recommend clinical evaluation and follow-up. Electronically signed by: Rose Marie Bowen DO 03/04/2025 02:21 PM [facility] Dictated By: Rose Marie Bowen DO Signed By: <Electronically signed by Rose Marie Bowen DO in OV> 03/04/25 1421 DD/ 1300 TD/TT: 03/04/25 1320 Liver Trimmer: Lesly Milner MD IMG BI PROCEDURES Final Result * (ABNORMAL) POCT Glucose (02/12/2025 10:35 AM EDT) Only the most recent of2 resultswithin the time period is included. Glucose Blood, POC 223(A) 60 - 200 mg/dL QC Media Lot # [id number] Lot# Expiration Date [id number] Blood Capillary blood specimen / Unknown 02/12/2025 10:35 AM EDT Lesly Milner MD POINT OF CARE CURT T ENTER/EDIT ORDERABLES Final Result * Albumin, Random Urine W/Creatinine (01/27/2025 8:50 AM EDT) Creatinine, Urine 160.31 mg/dL HO [facility] Microalbumin Urine 13.0 mg/L H [facility] Microalbum Creatinine Ratio Ur 8.1 <30 ug/mg cr [facility] Comment:Albumin/Creatinine R atio Reference Ranges: Normal: < 30 ug/mg creatinine Microalbuminuria: 30 - 300 ug/mg creatinineClinical Albuminuria: > 300 ug/mg creatinine Urine (Urine, Random) 01/27/2025 8:50 AM EDT 01/27/2025 11:23 AM EDT us Santo Carmen MD LAB URINE ORDERABLES Final Resul t Performing Organization Address City/State/[facility] [[email or web address]] Co de Phone Number [facility] [address] [place] [phone] * (ABNORMAL) CBC auto differential (01/27/2025 8:50 AM EDT) Pathologist [facility] White Blood Count 11.7(H) 4.8 - 10.8 X10*3/uL [facility] Red Blood Count 4.47(L) 4.60 - 5.80 X10*6/uL [facility] Hemoglobin 12.2(L) 14.0 - 18.0 g/dl [facility] Hematocrit 38.2(L) 42.0 - 52.0 % [facility] Mean Corpuscular Volume 85.5 80.0 - 98.0 fL [facility] Mean Corpuscular Hemoglobin 27.3 27.0 - 33.0 pg [facility] Mean Corpuscular HGB Conc 31.9 31.0 - 36.0 g/dl [facility] Red Cell Distribution Width 15.5 11.0 - 16.0 % [facility] Platelet Count 331 160 - 400 X10*3/uL [facility] Mean Platelet Volume 10.0 9.4 - 12.4 fL [facility] Neutrophils Percent Auto 65.2 45 - 73 % [facility] Imm Gran Pct Auto 0.3 0.0 - 0.4 % [facility] [facility] Lymphocytes Percent Auto 18.0(L) 20 - 40 % [facility] Monocytes Percent Auto 11.8(H) 2 - 11 % [facility] Eosinophils Percent Auto 4.4(H) 0 - 4 % [facility] Basophils Percent Auto 0.3 0 - 2 % [facility] NRBC Pct Auto 0.0 0.0 - 0.2 /100WBC [facility] Neutrophils Absolute Auto 7.6 2.0 - 8.3 x10*3/uL [facility] Imm Gran Abs Auto 0.04(H) 0.00 - 0.03 X10*3/uL [facility] Lymphocytes Absolute Auto 2.1 1.2 - 4.9 X10*3/uL [facility] Monocytes Absolute Auto 1.4(H) 0.1 - 1.2 X10*3/uL [facility] Eosinophils Absolute Auto 0.5(H) 0.0 - 0.4 X10*3/uL [facility] Basophils Absolute Auto 0.0 0.0 - 0.2 X10*3/uL [facility] NRBC Abs Auto 0.000 0.0 - 0.012 X10*3/uL [facility] Blood Venous blood specimen / Unknown 01/27/2025 8:50 AM EDT 01/27/2025 11:59 AM EDT us Santo Carmen MD LAB BLOOD ORDERABLES Final Resul t [facility] [address] [place] [phone] * (ABNORMAL) Lipid Panel, Standard (01/27/2025 8:50 AM EDT) Triglycerides 111 <150 mg/dL [facility] Comment:Desirable Triglyceri de: less than 150 mg/dLBorderline High Triglyceride 150-199 mg/dLHigh Triglyceride: 200-499 mg/dLVery High Triglyceride: greater than or equal to 5OO mg/dL Cholesterol 125 <200 mg/dL [facility] Comment:Desirable Cholestero l: less than 200 mg/dLBorderline High Cholesterol: 200-239 mg/dLHigh Cholesterol: greater than 239 mg/dL LDL Cholesterol Calculated 73 <100 mg/dL [facility] Comment:Desirable LDL: less than 100 mg/dLNear Optimal/Above Optimal LDL: 110- 129 mg/dLBorderline High LDL: 130-159 mg/dLHigh LDL: 160-189 mg/dLVery High LDL: greater than or equal to 190 mg/dL HDL Cholesterol 30(L) >40 mg/dL [facility] Comment:Desirable HDL: great er than 40 mg/dL Note: This HDL assay may give artificially low results in patients with liver disease. Blood Venous blood specimen / Unknown 01/27/2025 8:50 AM EDT 01/27/2025 11:46 AM EDT us Santo Carmen MD LAB BLOOD ORDERABLES Final Resul t [facility] [address] [place] [phone] * (ABNORMAL) Comprehensive Metabolic Panel (01/27/2025 8:50 AM EDT) Sodium 142 135 - 145 mmol/L [facility] Potassium 4.0 3.3 - 5.1 mmol/L [facility] Chloride 105 96 - 108 mmol/L [facility] Carbon Dioxide 28 22 - 29 mmol/L [facility] Anion Gap 13 12 - 20 [facility] Urea Nitrogen (BUN) 12 9 - 16 mg/dL [facility] Creatinine, Serum 0.81 0.5 - 1.4 mg/dL [facility] Estimated Glomerular Filt Rate >60 [facility] Comment:Chronic Kidney Disea se: Estimated GFR < 60 mL/min/1.13f1Litnfg Kidney Disease: Estimated GFR < 15 mL/min/1.73m2 Glucose 221(H) 60 - 115 mg/dL [facility] Calcium 9.7 8.4 - 10.2 mg/dL [facility] Bilirubin, Total 0.5 0.0 - 1.0 mg/dL [facility] Aspartate Amino Transferase 15 5 - 37 U/L [facility] Alanine Aminotransferase 12 0 - 40 U/L [facility] Total Protein 7.9 6.5 - 8.0 g/dL [facility] Albumin Level 4.6 3.5 - 5.0 g/dL [facility] Alkaline Phosphatase 94 39 - 117 U/L [facility] Blood Venous blood specimen / Unknown 01/27/2025 8:50 AM EDT 01/27/2025 11:46 AM EDT Santo Carmen MD LAB BLOOD ORDERABLES Final Resul t [facility] [address] [place] [phone] * (ABNORMAL) POCT A1c (01/22/2025 9:18 AM EDT) Hemoglobin A1C 9.7(A) 4.0 - 5.7 % Blood 01/22/2025 9:18 AM EDT Santo Carmen MD POINT OF CARE TEST ENTER/EDIT OR DERABLES Final Result from Last 3 Months Insurance [address] [place] [id number] [facility] C3 Care Teams Machine Clothing Man Relationship Specialty Start Date End Date Lesly Jaeger MD [address] [place] [phone] PCP - General Internal Medicine 02/12/25
--- OUTSIDE RECORDS SUMMARY | 2025-03-04 15:36 | XMS_ITS | Encounter Summary ---
Author Organization [employer] Address [address] [facility] 7t [place] [address] Care Team Providers Care Cleaning And Maintenance Worker Name Role Phone Lesly Jaeger MD Primary Care Pro vider Reason for Visit * Reason Comments Med Refill Encounter Details Date Type Department Care Team ([facility] st Contact Info) Description 03/03/2025 Refill [facility] [address] [place] [address] Lesly Jaeger MD [address] [place] [address] Social History Tobacco Use Types Packs/Day Years [...] with others, in a hotel, in a custodial, living outside on the street, on a [...] Description 2025 2:00 PM EST Clinical Support [facility] [address] [place] [phone] 04/09/2025 1:15 PM EST Office Visit [facility] [address] [place] [phone] Lesly Jaeger MD [address] [place] [address] 06/09/2025 1:30 PM EST Office Visit [facility] OPTOMETRY [address] [place] [phone] Renée Jones, OD [address] [place] [phone] documented as of this encounter Visit Diagnoses Not on filedocumented in this encounter Additional Health Concerns Assessment Noted Time PHQ-9 Depression Total Score: 13 025 4:44 PM EDT documented as of this encounter Care Teams Cleaning And Maintenance Worker Relationship Specialty Start Date End Date Lesly Jaeger MD [address] [place] [phone] PCP - General Internal Medicine 02/12/25 documented as of this encounter
== END 2025-03-04 12:52 | disposition home or self-care (01) ==
LOC: HO.MAMMO 12:51
PROVIDERS: PCP Student in an Organized Health Care Education/Training Program; Visit Provider Student in an Organized Health Care Education/Training Program
DX: N63.41 Unspecified lump in right breast, subareolar (principal)
CPT/HCPCS: 76642; 77062; 77066

== ENCOUNTER → 2025-03-04 13:00 | Outpatient (BNV) | payer MEDICAID, SELFPAY | PROVIDERS: PCP Student in an Organized Health Care Education/Training Program; Visit Provider Internal Medicine | DX: N62 Hypertrophy of breast (principal); N63.41 Unspecified lump in right breast, subareolar | CPT/HCPCS: 76642; 77062; 77066 ==

== ENCOUNTER 2025-03-30 08:37 | Outpatient (REF) | payer MEDICAID, SELFPAY ==
--- OUTSIDE RECORDS SUMMARY | 2025-03-30 09:08 | XMS_ITS | Encounter Summary ---
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) Social History Tobacco Use Types Packs/Day Years [...] with others, in a hotel, in a fdc, living outside on the street, on a [...] Care Team (Late st Contact Info) Description 04/09/2025 1:15 PM EST Office Visit [facility] [address] [place] [address] Lesly Jaeger MD [address] [place] [address] 06/09/2025 1:30 PM EST Office Visit [facility] OPTOMETRY [address] [place] [address] Renée Jones, OD [address] [place] [phone] documented as of this encounter Visit Diagnoses Diagnosis 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
--- OUTSIDE RECORDS SUMMARY | 2025-03-30 09:08 | XMS_ITS | Encounter Summary ---
Author Organization [employer] Address [address] [place] [address] 7[address] [place] [address] Care Team Providers Care Reject Opener Name Role Phone Lesly Jaeger MD Primary Care Pro vider Encounter Details Date Type Department Care Team (Late Contact Info) Description 01/28/2025 Results Follow-Up [facility] [address] [place] [phone] Santo Carmen MD [address] [place] [phone] POCT A1c, POCT glucose manually resulted, Lipid [...] [facility] [address] [place] [phone] Lesly Jaeger MD [address] [place] [phone] 06/09/2025 1:30 PM EST Office Visit [facility] OPTOMETRY [address] [place] [address] Renée Jones, OD [address] [place] [address] documented as of this encounter Visit Diagnoses Not on filedocumented in this encounter Care Teams Reject Opener Relationship Specialty Start Date End Date Lesly Jaeger MD [address] [place] [phone] PCP - General Internal Medicine 02/12/25 documented as of this encounter
--- OUTSIDE RECORDS SUMMARY | 2025-03-30 09:08 | XMS_ITS | Clinical Summary ---
Author Organization [employer] Address [address] [place] [address] [address] [place] [address] Care Team Providers Care Rustic Terrazzo Setter Name Role Phone Lesly Jaeger MD Primary Care Pro vider Allergies Active Allergy Reactions Criticality Noted Date Comments Aspirin Rash Low 01/22/2025 Medications * This document contains information received from the source organization and may not represent a complete record from that organization. insulin glargine (Lantus SoloStar) 100 UNIT/ML penIndications:T ype 1 diabetes mellitus with other circulatory complication (HCC) Inject 30 Units under the skin at bedtime. 10 mL 2 5 11:13 AM EST 01/23/20 25 026 Active insulin lispro (HumaLOG KWIKPEN) 100 UNIT/ML injectionIndicat ions: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) Inject 10 Units under the skin with breakfast, with lunch, and with evening meal. 10 mL 2 01/23/20 25 025 Active lisinopril (Zestril) 2.5 MG tabletIndication s: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) Take 1 tablet (2.5 mg) by mouth Once per day. 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 30 tablet 2 01/23/20 25 025 Active clopidogrel (Plavix) 75 MG tabletIndication s:Peripheral vascular disease (CMS/HCC) Take 1 tablet (75 mg) by mouth Once per day. 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 dx type 1 diabetes 100 each 01/23/20 25 Active Melatonin 3 MG capsule Take 3 mg by mouth if needed at bedtime (insomnia). 30 capsule 2 02/13/20 Active gabapentin (Neurontin) 400 MG capsule Take 1 capsule (400 mg) by mouth at bedtime. 90 capsule 5 11:13 AM EST 02/13/20 Active Continuous Glucose Sheet Metal Apprentice (FreeStyle Desi 3 [place]) device 1 Device 4 times daily. 1 each 02/13/20 Active Continuous Glucose Sensor (FreeStyle Desi 3 Plus Sensor) misc 1 each every 15 days. Apply 1 every 15 days as directed for CGM 2 each 5 11:13 AM EST 02/13/20 Active glucose blood (FreeStyle Precision [place] Test) test strip 4 times a day 100 each 5 11:13 AM EST 02/13/20 Active glucose 4 g chewable tablet Chew 4 tablets (16 g) if needed for low blood sugar. 50 tablet 12 02/13/20 Active FT Earwax Removal 6.5 % otic solution PLACE 5 TO 10 DROPS INTO THE AFFECTED EAR(S) TWICE DAILY FOR 4 DAYS 30 mL 03/04/20 Active carbamide peroxide (Debrox) 6.5 % otic solution [...] organization. 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) 03/18/2025 Refill [facility] [address] [place] [address] Lesly Jaeger MD 03/16/2025 Telephone [facility] [address] [place] [phone] Lesly Jaeger MD Prior Authorization ( Glucose tab) 2025 2:00 PM EST Clinical Support [facility] [address] [place] [phone] Ronda Arango, RN Type 1 diabetes mellitus with diabetic peripheral angiopathy without gangrene (HCC) 2025 Travel 03/03/2025 Refill [facility] [address] [place] [address] Lesly Jaeger MD 02/26/2025 Telephone [facility] [address] [place] [phone] Lesly Jaeger MD Appointment 02/13/2025 2:00 PM EDT Clinical Support [address] [address] Ronda Arango, RN Type 1 diabetes mellitus with diabetic peripheral angiopathy without gangrene (HCC) 02/13/2025 Travel 02/12/2025 9:45 AM EDT Office Visit [address] [address] Lesly Jaeger MD Diabetic retinopathy screening (Primary Dx); 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); Annual physical exam; Colon cancer screening; Subareolar mass of right breast; Encounter for immunization; Type 1 diabetes mellitus with diabetic peripheral angiopathy without gangrene (HCC); Health care maintenance; Peripheral vascular disease (CMS/HCC); Diabetic polyneuropathy associated with type 1 diabetes mellitus (HCC); Hyperlipidemia, unspecified hyperlipidemia type; Anxiety; Primary insomnia; History of allergy to aspirin; Anemia, unspecified type; Impacted cerumen of left ear 02/12/2025 Telephone [facility] [address] [place] [phone] Lesly Jaeger MD 02/12/2025 Orders Only [address] [address] Lesly Jaeger MD Subareolar mass of right breast (Primary Dx) 02/12/2025 Telephone [facility] [address] [place] [phone] Lesly Jaeger MD MAMMO/US BREAST ORDER 02/12/[address] [address] Pily Guerin, RN Appointment Request 02/12/2025 Travel 02/11/[address] [address] Lesly Jaeger MD chart prep 02/05/2025 Patient Outreach [facility] [address] [place] [phone] Lesly Jaeger MD Care Coordination ([facility] outreach for SDOH housing search-referral completed ) 02/05/2025 Patient Outreach [address] [address] Lesly Jaeger MD Pre-visit Planning (SDOH Screening positive and Tobacco screening negative) 01/30/[address] [facility] () Department [address] [place] [phone] Provider, Population Health Generic 01/28/2025 Results Follow-Up [facility] [address] [place] [phone] Santo Carmen MD POCT A1c, POCT glucose manually resulted, Lipid Panel, Standard, Additional followed-up results: 3 01/24/2025 Telephone [facility] [address] [address] Santo Carmen MD EYE EXAM REQUEST (New patient with Type 1 DM being referred for routine eye exam.) 01/22/2025 9:00 AM EDT Office Visit [facility] [address] [address] Santo Carmen MD 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 (CMS/HCC) (Primary Dx); Polyneuropathy associated with underlying disease (CMS/HCC); Amputation of right great toe (CMS/HCC); Hypercholesterolemia; Peripheral vascular disease (CMS/HCC) 01/22/2025 Telephone [facility] [address] [address] Santo Carmen MD 01/22/2025 Travel 01/21/[address] [address] Serg Lares MD Call Back Request 01/05/[address] [address] Serg Lares MD [facility] - New Patient Assistance from Last 3 Months Immunizations Immunization Administration [...] with others, in a hotel, in a senior living, living outside on the street, on a [...] Description 04/09/2025 1:15 PM EST Office Visit [facility] [address] [place] [address] Lesly Jaeger MD [address] [place] [address] 06/09/2025 1:30 PM EST Office Visit [facility] [address] [place] [address] Renée Jones, OD [address] [place] [address] Health Maintenance Due Date Last Done Comments Anal Pap 1972 CT Colonography 1972 Colonoscopy 1972 Colorectal Cancer Screening 1972 FIT DNA/Cologuard 1972 FIT 1972 FOBT 1972 HIV Screening 1972 Sigmoidoscopy 1972 Diabetes: Foot Exam 1982 Eye Exam 1982 Hepatitis C Screening 1990 DTaP/Tdap/Td Vaccines (1 - Tdap) 1991 Hepatitis A Vaccines (1 of 2 - Risk 2-dose series) 1991 Hepatitis B Vaccines (1 of 3 - 19+ 3-dose series) 1991 RSV Patients and Patients Aged 60 years or older (1 - Risk 50-74 years 1-dose series) 2022 Zoster Vaccines (1 of 2) 2022 Diabetes: Hemoglobin A1C 04/23/2025 01/22/2025 Depression Monitoring 08/13/2025 02/12/2025 , 02/12/2025 Diabetes: Urine Protein Screening 01/27/2026 01/27/2025 Lipid Panel 01/27/2026 01/27/2025 Alcohol/Substance Use Screening 02/12/2026 02/12/2025 Disability Screening 02/12/2026 02/12/2025 SDOH Screening 02/12/2026 02/12/2025 Tobacco Screening 02/12/2026 02/12/2025 COVID-19 Vaccine Completed 02/12/2025 Influenza Vaccine Completed [...] PM EST Narrative 03/04/2025 2:24 PM EST [facility] [address] [place] [place], [place] [address] Ultrasound Report Signed Patient: Mike Chavez MR#: [id number] : 1970 Acct:[id number] Age/Sex: 54 / M ADM Date: 03/04/25 Loc: HO.MAMMO Attending Dr: Lesly Milner MD Ordering Physician: Lesly Jaeger MD Date of Service: 03/04/25 Procedure(s): US Breast RT Limited Mamm Only Accession Number(s): [id number] cc: Lesly Jaeger MD Reason for Exam: [...] Rose Marie Bowen DO 03/04/2025 02:21 PM [facility] Dictated By: Rose Marie Bowen DO Signed By: <Electronically signed by Rose Marie Bowen DO in OV> 03/04/25 1421 DD/ 1335 TD/TT: 03/04/25 1348 Disabilities Caregiver: Procedure Note Donotuseinterpreter, Image - 03/04/2025 [facility] [address] [place] [address] Ultrasound Report Signed Patient: Mike Chavez#: M [id number] : 1970Acct:[id number] Age/Sex: 54 / MADM Date: 03/04/25 Loc: HO.MAMMO Attending Dr: Lesly Milner MD Ordering Physician: Lesly Jaeger MD Date of Service: 03/04/25 Procedure(s): US Breast RT Limited Mamm Only Accession Number(s): [id number] cc: Lesly Jaeger MD Reason for Exam: [...] Marie Bowen DO 03/04/2025 02:21 PM EST Dictated By: Rose Marie Bowen DO Signed By: <Electronically signed by Rose Marie Bowen DO in OV> 03/04/25 1421 DD/ 1335 TD/TT: 03/04/25 1348 Disabilities Caregiver: Lesly Milnre MD IMG US PROCEDURES Final Result * BI Mammogram Diagnostic Tomosynthesis Bilateral (03/04/2025 1:00 PM EST) Anatomical Region Laterality Modality Breast Bilateral Mammography 03/04/2025 1:00 PM EST Narrative 03/04/2025 2:24 PM EST [place] [facility] [address] [place] [address] Mammography Report Signed Patient: Mike Chavez MR#: [id number] : 1970 Acct:[id number] Age/Sex: 54 / M ADM Date: 03/04/25 Loc: HO.MAMMO Attending Dr: Lesly Milner MD Ordering Physician: Lesly Jaeger MD Re sults: 2Benign Date of Service: 03/04/25 Follow Up: 1 Year From Orig inal Mammogram Procedure(s): MM tomosynthesis diagnostic BI Accession Number(s): [id number] cc: Lesly Jaeger MD Reason For Exam: [...] Rose Marie Bowen DO 03/04/2025 02:21 PM [facility] Workstation: [id number] Dictated By: Rose Marie Bowen DO Signed By: <Electronically signed by Rose Marie Bowen DO in OV> 03/04/25 1421 DD/ 1300 TD/TT: 03/04/25 1320 Disabilities Caregiver: Procedure Note Donotuseinterpreter, Image - 03/04/2025 [facility] [address] [place] [address] [place] [address] Mammography Report Signed Patient: Mike Chavez#: M [id number] : 1970Acct:[id number] Age/Sex: 54 / MADM Date: 03/04/25 Loc: HO.MAMMO Attending Dr: Lesly Milner MD Ordering Physician: Lesly Jaeger sults: 2Benign Date of Service: 03/04/25Follow Up: 1 Year From Orig ina Mammogram Procedure(s): MM tomosynthesis diagnostic BI Accession Number(s): [id number] cc: Lesly Jaeger MD Reason For Exam: [...] Marie Bowen DO 03/04/2025 02:21 PM EST Dictated By: Rose Marie Bowen DO Signed By: <Electronically signed by Rose Marie Bowen DO in OV> 03/04/25 1421 DD/ 1300 TD/TT: 03/04/25 1320 Disabilities Caregiver: us Lesly Milner MD IMG BI PROCEDURES Final Result * (ABNORMAL) POCT Glucose (02/12/2025 10:35 AM EDT) Only the most recent of2 resultswithin the time period is included. Pathologist [facility] Glucose Blood, POC 223(A) 60 - 200 mg/dL QC Media Lot # [id number] Lot# Expiration Date 293, Blood Capillary blood specimen / Unknown 02/12/2025 10:35 AM EDT Lesly Milner MD POINT OF CARE CURT T ENTER/EDIT ORDERABLES Final Result * Albumin, Random Urine W/Creatinine (01/27/2025 8:50 AM EDT) Pathologist [facility] Creatinine, Urine 160.31 mg/dL [facility] Microalbumin Urine 13.0 mg/L [facility] Microalbum Creatinine Ratio Ur 8.1 <30 ug/mg cr [facility] Comment:Albumin/Creatinine R atio Reference Ranges: Normal: < 30 ug/mg creatinine Microalbuminuria: 30 - 300 ug/mg creatinineClinical Albuminuria: > 300 ug/mg creatinine Urine (Urine, Random) 01/27/2025 8:50 AM EDT 01/27/2025 11:23 AM EDT Santo Carmen MD LAB URINE ORDERABLES Final Resul t [facility] [address] [place] [phone] * (ABNORMAL) CBC auto differential (01/27/2025 8:50 AM EDT) Pathologist [facility] White Blood Count 11.7(H) 4.8 - 10.8 X10*3/uL [facility] Red Blood Count 4.47(L) 4.60 - 5.80 X10*6/uL [facility] Hemoglobin 12.2(L) 14.0 - 18.0 g/dl [facility] Hematocrit 38.2(L) 42.0 - 52.0 % [facility] Mean Corpuscular Volume 85.5 80.0 - 98.0 fL [facility] Mean Corpuscular Hemoglobin 27.3 27.0 - 33.0 pg [facility] Mean Corpuscular HGB Conc 31.9 31.0 - 36.0 g/dl [facility] Red Cell Distribution Width 15.5 11.0 - 16.0 % [facility] Platelet Count 331 160 - 400 X10*3/uL [facility] Mean Platelet Volume 10.0 9.4 - 12.4 fL [facility] Neutrophils Percent Auto 65.2 45 - 73 % [facility] Imm Gran Pct Auto 0.3 0.0 - 0.4 % [facility] Lymphocytes Percent Auto 18.0(L) 20 - 40 % [facility] Monocytes Percent Auto 11.8(H) 2 - 11 % [facility] Eosinophils Percent Auto 4.4(H) 0 - 4 % [facility] Basophils Percent Auto 0.3 0 - 2 % [facility] NRBC Pct Auto 0.0 0.0 - 0.2 /100WBC [facility] Neutrophils Absolute Auto 7.6 2.0 - 8.3 x10*3/uL [facility] Imm Gran Abs Auto 0.04(H) 0.00 - 0.03 X10*3/uL [facility] Lymphocytes Absolute Auto 2.1 1.2 - 4.9 X10*3/uL [facility] Monocytes Absolute Auto 1.4(H) 0.1 - 1.2 X10*3/uL [facility] Eosinophils Absolute Auto 0.5(H) 0.0 - 0.4 X10*3/uL [facility] Basophils Absolute Auto 0.0 0.0 - 0.2 X10*3/uL [facility] NRBC Abs Auto 0.000 0.0 - 0.012 X10*3/uL [facility] Blood Venous blood specimen / Unknown 01/27/2025 8:50 AM EDT 01/27/2025 11:59 AM EDT us Santo Carmen MD LAB BLOOD ORDERABLES Final Resul t [facility] [address] [place] [phone] * (ABNORMAL) Lipid Panel, Standard (01/27/2025 8:50 AM EDT) Triglycerides 111 <150 mg/dL [facility] Comment:Desirable Triglyceri de: less than 150 mg/dLBorderline High Triglyceride 150-199 mg/dLHigh Triglyceride: 200-499 mg/dLVery High Triglyceride: greater than or equal to 5OO mg/dL Cholesterol 125 <200 mg/dL [facility] Comment:Desirable Cholestero l: less than 200 mg/dLBorderline High Cholesterol: 200-239 mg/dLHigh Cholesterol: greater than 239 mg/dL LDL Cholesterol Calculated 73 <100 mg/dL [facility] Comment:Desirable LDL: less than 100 mg/dLNear Optimal/Above Optimal LDL: 110- 129 mg/dLBorderline High LDL: 130-159 mg/dLHigh LDL: 160-189 mg/dLVery High LDL: greater than or equal to 190 mg/dL HDL Cholesterol 30(L) >40 mg/dL [facility] Comment:Desirable HDL: great er than 40 mg/dL Note: This HDL assay may give artificially low results in patients with liver disease. Blood Venous blood specimen / Unknown 01/27/2025 8:50 AM EDT 01/27/2025 11:46 AM EDT us Santo Carmen MD LAB BLOOD ORDERABLES Final Resul t [facility] [address] [place] [phone] * (ABNORMAL) Comprehensive Metabolic Panel (01/27/2025 8:50 AM EDT) Sodium 142 135 - 145 mmol/L [facility] Potassium 4.0 3.3 - 5.1 mmol/L [facility] Chloride 105 96 - 108 mmol/L [facility] Carbon Dioxide 28 22 - 29 mmol/L [facility] Anion Gap 13 12 - 20 [facility] Urea Nitrogen (BUN) 12 9 - 16 mg/dL [facility] Creatinine, Serum 0.81 0.5 - 1.4 mg/dL [facility] Estimated Glomerular Filt Rate >60 [facility] Comment:Chronic Kidney Disea se: Estimated GFR < 60 mL/min/[id number] Kidney Disease: Estimated GFR < 15 mL/min/1.73m2 Glucose 221(H) 60 - 115 mg/dL [facility] Calcium 9.7 8.4 - 10.2 mg/dL [facility] Bilirubin, Total 0.5 0.0 - 1.0 mg/dL [facility] Aspartate Amino Transferase 15 5 - 37 U/L [facility] Alanine Aminotransferase 12 0 - 40 U/L [facility] Total Protein 7.9 6.5 - 8.0 g/dL [facility] Albumin Level 4.6 3.5 - 5.0 g/dL [facility] Alkaline Phosphatase 94 39 - 117 U/L [facility] Blood Venous blood specimen / Unknown 01/27/2025 8:50 AM EDT 01/27/2025 11:46 AM EDT Santo Carmen MD LAB BLOOD ORDERABLES Final Resul t [facility] [address] [place] [phone] * (ABNORMAL) POCT A1c (01/22/2025 9:18 AM EDT) Hemoglobin A1C 9.7(A) 4.0 - 5.7 % Blood 01/22/2025 9:18 AM EDT Santo Carmen MD POINT OF CARE TEST ENTER/EDIT OR DERABLES Final Result from Last 3 Months Insurance [address] [place] [id number] [facility] C3 Care Teams Rustic Terrazzo Setter Relationship Specialty Start Date End Date Lesly Jaeger MD [address] [place] [address] [phone] PCP - General Internal Medicine 02/12/25
[2025-03-30 11:20] LABS: MANUAL DIFF FLAG NO
[2025-03-30 11:29] LABS: Hematocrit 46.0 % (42.0-52.0); Hemoglobin 14.3 g/dl (14.0-18.0); Imm Gran Abs Auto 0.03 X10*3/uL (0.00-0.03); Imm Gran Pct Auto 0.4 % (0.0-0.4); Lymphocytes Absolute Auto 2.4 X10*3/uL (1.2-4.9); Mean Corpuscular HGB Conc 31.1 g/dl (31.0-36.0); Mean Corpuscular Hemoglobin 27.3 pg (27.0-33.0); Mean Corpuscular Volume 87.8 fL (80.0-98.0); NRBC Abs Auto 0.000 X10*3/uL (0.0-0.012); NRBC Pct Auto 0.0 /100WBC (0.0-0.2); Platelet Count 280 X10*3/uL (160-400); Red Blood Count 5.24 X10*6/uL (4.60-5.80); White Blood Count 8.5 X10*3/uL (4.8-10.8)
[2025-03-30 12:24] LABS: Ferritin 62 ng/mL (20-250); Iron 85 mcg/dL (45-160); Percent Iron Saturation 26 % (15-50); Total Iron Binding Capacity 330 mcg/dL (228-428); Unsaturated Iron Binding 245 ug/dL
[2025-03-30 12:28] LABS: Syphilis Screen Nonreactive (Nonreactive)
[2025-03-30 12:41] LABS: Folate 12.0 ng/mL (> or = 4.0); Prostate Specific Antigen 1.83 ng/mL (<0.05-4.0); Vitamin B12 523 pg/mL (200-900)
[2025-03-30 12:59] LABS: CT PCR Urine NOT DETECTED (Not Detect.); NG PCR Urine NOT DETECTED (Not Detect.)
[2025-03-30 13:12] LABS: HBS Num1 1.12 mIU/mL (0-7.99); HBc Num1 0.22 S/CO (0.00-0.79); HBsAGNum1 0.36 S/CO (0.00-0.99); HIV Num 1 0.09 S/CO (0.00-0.99); Hepatitis B Surface Antigen Negative (Negative); ~HepC Num1 0.28 S/CO (0.00-0.79); ~Hepatitis B Surface Antibody NONREACTIVE (Nonreactive); ~Hepatitis C Antibody Nonreactive (Nonreactive)
[2025-03-31 09:19] LABS: Rubeola IgG (Measles) 33.70 AU/mL
[2025-04-02 02:34] LABS: TS Negative Control Passed; TS Panel A 0; TS Panel B 0; TS Positive Control Passed; TSpotTB Negative (Negative)
[2025-04-04 02:39] LABS: Insulinoma associated 2 aatb <5.4 U/mL (<5.4)
== END 2025-03-30 08:38 | disposition home or self-care (01) ==
LOC: HO.HHCL 08:37
PROVIDERS: PCP Student in an Organized Health Care Education/Training Program; Visit Provider Student in an Organized Health Care Education/Training Program
DX: Z00.00 Encounter for general adult medical examination without abnormal findings (principal); E10.59 Type 1 diabetes mellitus with other circulatory complications; Z20.2 Contact with and (suspected) exposure to infections with a predominantly sexual mode of transmission; Z11.59 Encounter for screening for other viral diseases; Z01.84 Encounter for antibody response examination; Z11.1 Encounter for screening for respiratory tuberculosis
CPT/HCPCS: 82306; 82607; 82728; 82746; 83036; 83540; 84153; 84443; 85025; 86341; 86481; 86704; 86706; 86735; 86762; 86765; 86780; 86803; 87340; 87389; 87491; 87591